=== PATIENT | female | born 1935 | race Caucasian/White ===

== ENCOUNTER 2017-01-17 08:39 | Inpatient (IN) | payer MEDICARE, OTHER ==
[2017-01-17 09:45] LABS: BILIRUBIN - TOTAL 0.4 mg/dL (0.1-1.0); CREATININE 0.9 mg/dL (0.5-1.0); GLOBULIN (CALCULATION) 2.6 g/dL (2.2-4.2); POTASSIUM 4.2 mmol/L (3.5-5.1); TOTAL PROTEIN 6.6 g/dL (6.4-8.3)
[2017-01-17 09:46] LABS: BASOPHIL 0.3 % (0-2); EOSINOPHIL 1.8 % (0-7); HCT 46.4 % (37.0-47.0); HGB 15.3 g/dl (12.5-16.0); LYMPHOCYTE 19.4 % (15-48); MCH 32.1 pg (25.0-31.0); MCV 97.5 fL (78.0-100.0); MPV 8.9 fL (6.0-9.5); NEUTROPHIL 65.5 % (41-80); PLT 177 K/uL (150-400); RBC 4.76 M/uL (4.20-5.40); RDW 13.7 % (11.5-14.0)
[2017-01-18 06:12] LABS: BASOPHIL 0.1 % (0-2); EOSINOPHIL 0 % (0-7); HCT 40.1 % (37.0-47.0); HGB 13.5 g/dl (12.5-16.0); LYMPHOCYTE 9.7 % (15-48); MCH 32.2 pg (25.0-31.0); MCHC 33.7 g/dL (32.0-36.0); MCV 95.7 fL (78.0-100.0); MONOCYTE 3.2 % (0-12); MPV 8.7 fL (6.0-9.5); PLT 145 K/uL (150-400); RBC 4.19 M/uL (4.20-5.40); RDW 13.3 % (11.5-14.0); WBC 11.1 K/uL (4.0-10.5)
[2017-01-18 06:47] LABS: CREATININE 0.8 mg/dL (0.5-1.0); POTASSIUM 3.9 mmol/L (3.5-5.1)
[2017-01-18 22:24] LABS: BILIRUBIN NEGATIVE (NEGATIVE); BLOOD TRACE-INTACT Ery/uL (NEGATIVE); CLARITY CLEAR (CLEAR); COLOR YELLOW (YELLOW); GLUCOSE (U) NORMAL (NORMAL); KETONE (U) NEGATIVE (NEGATIVE); LEUKOCYTES NEGATIVE Leu/uL (NEGATIVE); NITRITE NEGATIVE (NEGATIVE); PROTEIN NEGATIVE (NEGATIVE); SPECIFIC GRAVITY <=1.005 (1.001-1.030); UROBILINOGEN 0.2 mg/dL (0.2-1.0)
[2017-01-18 22:28] LABS: SQUAMOUS EPITHELIAL CELLS RARE
[2017-01-20 04:30] LABS: HCT 40.3 % (37.0-47.0); HGB 13.5 g/dl (12.5-16.0); MCH 32.1 pg (25.0-31.0); MCHC 33.5 g/dL (32.0-36.0); MCV 95.7 fL (78.0-100.0); MPV 8.9 fL (6.0-9.5); RBC 4.21 M/uL (4.20-5.40); RDW 13.5 % (11.5-14.0)
[2017-01-20 04:33] LABS: WBC 22.6 K/uL (4.0-10.5)
[2017-01-20 04:58] LABS: CREATININE 0.8 mg/dL (0.5-1.0); POTASSIUM 5.1 mmol/L (3.5-5.1)
[2017-01-21 05:17] LABS: HCT 41.4 % (37.0-47.0); HGB 13.7 g/dl (12.5-16.0); MCH 31.9 pg (25.0-31.0); MCHC 33.1 g/dL (32.0-36.0); MCV 96.3 fL (78.0-100.0); MPV 9.1 fL (6.0-9.5); RBC 4.3 M/uL (4.20-5.40); RDW 13.8 % (11.5-14.0); WBC 16.3 K/uL (4.0-10.5)
[2017-01-21 05:39] LABS: CREATININE 0.8 mg/dL (0.5-1.0)
[2017-01-21 05:48] LABS: POTASSIUM 5.5 mmol/L (3.5-5.1)
[2017-01-22 05:14] LABS: HCT 40.8 % (37.0-47.0); HGB 13.5 g/dl (12.5-16.0); MCH 31.7 pg (25.0-31.0); MCHC 33.1 g/dL (32.0-36.0); MCV 95.8 fL (78.0-100.0); MPV 8.6 fL (6.0-9.5); RBC 4.26 M/uL (4.20-5.40); RDW 13.6 % (11.5-14.0); WBC 13.2 K/uL (4.0-10.5)
[2017-01-22 05:34] LABS: CREATININE 0.8 mg/dL (0.5-1.0); POTASSIUM 4.1 mmol/L (3.5-5.1)
[2017-01-23 05:56] LABS: HCT 39.7 % (37.0-47.0); HGB 13.2 g/dl (12.5-16.0); MCHC 33.2 g/dL (32.0-36.0); MCV 96.1 fL (78.0-100.0); MPV 8.5 fL (6.0-9.5); RBC 4.13 M/uL (4.20-5.40); RDW 13.5 % (11.5-14.0); WBC 12.4 K/uL (4.0-10.5)
[2017-01-23 06:16] LABS: CREATININE 0.8 mg/dL (0.5-1.0); POTASSIUM 3.9 mmol/L (3.5-5.1)
[2017-01-24 04:40] LABS: HCT 41.4 % (37.0-47.0); MCH 32.1 pg (25.0-31.0); MCHC 33.8 g/dL (32.0-36.0); MPV 8.9 fL (6.0-9.5); RBC 4.36 M/uL (4.20-5.40); RDW 13.6 % (11.5-14.0); WBC 16.1 K/uL (4.0-10.5)
[2017-01-24 05:14] LABS: CREATININE 0.7 mg/dL (0.5-1.0)
[2017-01-24 05:15] LABS: POTASSIUM 5.4 mmol/L (3.5-5.1)
== END 2017-01-25 14:06 | DRG 189 ==
LOC: FER 08:39 → FMS 10:50
PROVIDERS: Internal Medicine; ADMIT Internal Medicine
DX: J96.21 Acute and chronic respiratory failure with hypoxia (principal); F03.90 Unspecified dementia, unspecified severity, without behavioral disturbance, psychotic disturbance, mood disturbance, and anxiety; G62.9 Polyneuropathy, unspecified; J44.0 Chronic obstructive pulmonary disease with (acute) lower respiratory infection; J44.1 Chronic obstructive pulmonary disease with (acute) exacerbation; E78.5 Hyperlipidemia, unspecified; I10 Essential (primary) hypertension; K21.9 Gastro-esophageal reflux disease without esophagitis; M06.9 Rheumatoid arthritis, unspecified; J20.9 Acute bronchitis, unspecified; H60.92 Unspecified otitis externa, left ear; E03.9 Hypothyroidism, unspecified; F41.9 Anxiety disorder, unspecified; Z88.2 Allergy status to sulfonamides; Z86.73 Personal history of transient ischemic attack (TIA), and cerebral infarction without residual deficits; Z79.899 Other long term (current) drug therapy; Z79.82 Long term (current) use of aspirin; Z87.891 Personal history of nicotine dependence
CPT/HCPCS: 36415; 36600; 71010; 71250; 80048; 80053; 81001; 82803; 83605; 84484; 85025; 85651; 86403; 87040; 87070; 87077; 87088; 87205; 87804; 87899; 93005; 94640; 94664; 94668; 97110; 97116; 97161; 97166; 97530-GP; 97535; J0456; J1956; J2543; J2930

== ENCOUNTER 2017-01-25 14:12 | Inpatient (IN) | payer MEDICARE, OTHER ==
--- NOTE | 2017-01-27 15:50 | NUR ---
PT. D/C HOME THIS DATE PER HER REQUEST. PT. REQUESTED [facility] FOR PT/OT AND NURSING ASSESSMENT. D/C NOTICE AND QUESTIONNAIRE GIVEN.
== END 2017-01-27 16:12 | disposition home health service (06) | DRG 189 ==
LOC: FSNU 14:12
PROVIDERS: ADMIT Internal Medicine
PROC: 3E0234Z Introduction of Serum, Toxoid and Vaccine into Muscle, Percutaneous Approach (ICD-10-PCS; principal; 2017-01-25)
DX: J96.21 Acute and chronic respiratory failure with hypoxia (principal); F03.90 Unspecified dementia, unspecified severity, without behavioral disturbance, psychotic disturbance, mood disturbance, and anxiety; G62.9 Polyneuropathy, unspecified; J44.0 Chronic obstructive pulmonary disease with (acute) lower respiratory infection; J44.1 Chronic obstructive pulmonary disease with (acute) exacerbation; Z51.89 Encounter for other specified aftercare; E78.5 Hyperlipidemia, unspecified; I10 Essential (primary) hypertension; K21.9 Gastro-esophageal reflux disease without esophagitis; M06.9 Rheumatoid arthritis, unspecified; Z79.899 Other long term (current) drug therapy; J20.9 Acute bronchitis, unspecified; H60.92 Unspecified otitis externa, left ear; Z88.2 Allergy status to sulfonamides; Z86.73 Personal history of transient ischemic attack (TIA), and cerebral infarction without residual deficits; F41.9 Anxiety disorder, unspecified; Z23 Encounter for immunization
CPT/HCPCS: 90686; 90732; 97116; 97161; 97166; 97530-GP; 97535; G0008; G0009

== ENCOUNTER 2021-02-23 17:11 | Inpatient (IN) | payer MEDICARE, OTHER ==
[~2021-02-23 17:11] MED LIST: ARICEPT10 MG PO; ASCORBIC ACID500 MG PO; ASPIRIN CHEWABL81 MG PO; AUGMENTIN 500-1 EACH PO; BUSPIRONE HCL15 MG PO; CLARITIN-D 241 EACH PO; COLACE100 MG PO; CORTISPORIN-TC10 M1 AD; COZAAR100 MG PO; DICLOFENAC SODI75 MG PO; DUONEB 2.5-0.5M1 AMP NEB; FLONASE ALLER15.8 ML; FOLIC ACID1 MG PO; HCTZ25 MG PO; KEVZARA200 MG/1.1 IJ; LASIX20 MG PO; LEVAQUIN750 MG PO; LEXAPRO 10MG TA10 MG PO; LOPRESSOR50 MG PO; MEDROL 4MG DOSEP4 MG PO; MUCINEX 600MG600 MG PO; MUCINEX600 MG PO; NEURONTIN300 MG PO; NEXIUM40 MG PO; NORVASC5 MG PO; NYSTATIN SUSP1 ML/ML SSP; OS-CAL500 MG PO; PERCOCET 10-321 EACH PO; PERCOCET 7.5-31 EACH PO; POTASSIUM GLUC500 MG PO; PREDNISONE 10MG10 MG PO; PREDNISONE 5MG T5 MG PO; PROBIOTIC1 EAC1 PO; RESTORIL15 MG PO; RHEUMATREX2.5 MG PO; SINGULAIR10 MG PO; SYNTHROID75 MCG PO; TOPROL XL 50 MG50 MG PO; VITAMIN D35000 UNI2 PO; ZOCOR20 MG PO; ZYRTEC10 M3 PO; ZYRTEC10 MG PO
[2021-02-23 19:03] LABS: BASOPHIL 0.3 % (0-2); EOSINOPHIL 0.1 % (0-7); HCT 38.7 % (37.0-47.0); HGB 13.1 g/dl (12.5-16.0); LYMPHOCYTE 7.3 % (15-48); MCH 35.3 pg (25.0-31.0); MCHC 33.9 g/dL (32.0-36.0); MCV 104.3 fL (78.0-100.0); MONOCYTE 6.5 % (0-12); MPV 9.1 fL (6.0-9.5); NRBC 0.1; PLT 161 K/uL (150-400); RBC 3.71 M/uL (4.20-5.40); RDW 16.5 % (11.5-14.0); WBC 25.4 K/uL (4.0-10.5)
[2021-02-23 19:11] LABS: ALBUMIN 2.5 g/dL (3.4-5.0); BILIRUBIN - TOTAL 0.6 mg/dL (0.2-1.0); BUN/CREAT RATIO (CALC) 15.4 RATIO; CREATININE 1.23 mg/dL (0.51-0.95); GLOBULIN (CALCULATION) 3.3 g/dL; POTASSIUM 4.1 mmol/L (3.5-5.1); TOTAL PROTEIN 5.8 g/dL (6.4-8.2)
[2021-02-23 23:07] LABS: BILIRUBIN NEGATIVE (NEGATIVE); BLOOD TRACE-INTACT Ery/uL (NEGATIVE); CLARITY CLEAR (CLEAR); COLOR YELLOW (YELLOW); GLUCOSE (U) NORMAL (NORMAL); LEUKOCYTES NEGATIVE Leu/uL (NEGATIVE); NITRITE NEGATIVE (NEGATIVE); PROTEIN 1+ mg/dL (NEGATIVE); UROBILINOGEN 0.2 mg/dL (0.2-1.0); pH 6.5 (5.0-9.0)
[2021-02-23 23:13] LABS: SQUAMOUS EPITHELIAL CELLS RARE
[2021-02-23] MEDS ORDERED: REMERON15 MG PO (23:15)
[2021-02-23] MEDS ORDERED: SYNTHROID75 MCG PO (23:16)
[2021-02-23] MEDS ORDERED: COREG12.5 MG PO (23:16)
[2021-02-23] MEDS ORDERED: CHILDREN'S ASPI81 MG PO (23:18)
[2021-02-23] MEDS ORDERED: CERTIZINE PO (23:20)
[2021-02-23] MEDS ORDERED: PERCOCET 10-321 EACH PO (23:21)
[2021-02-23] MEDS ORDERED: MOVANTIK12.5 MG PO (23:22)
[2021-02-23] MEDS ORDERED: PRINIVIL20 MG PO (23:23)
[2021-02-23] MEDS ORDERED: PREDNISONE5 MG PO (23:23)
[2021-02-23] MEDS ORDERED: BUSPIRONE HCL15 MG PO (23:24)
[2021-02-23] MEDS ORDERED: LEXAPRO 10MG TA10 MG PO (23:25)
[2021-02-23] MEDS ORDERED: NORVASC2.5 MG PO (23:25)
[2021-02-23] MEDS ORDERED: RHEUMATREX2.5 MG PO (23:27)
[2021-02-23] MEDS ORDERED: LASIX20 MG PO (23:27)
[2021-02-23] MEDS ORDERED: [UNRECOGNIZED DRUG - OTHER] IV (23:30)
[2021-02-24 06:08] LABS: BASOPHIL 0.2 % (0-2); EOSINOPHIL 0.1 % (0-7); HCT 37.4 % (37.0-47.0); HGB 12.3 g/dl (12.5-16.0); LYMPHOCYTE 3.5 % (15-48); MCH 34.6 pg (25.0-31.0); MCHC 32.9 g/dL (32.0-36.0); MCV 105.1 fL (78.0-100.0); MONOCYTE 3.2 % (0-12); MPV 9.4 fL (6.0-9.5); NEUTROPHIL 89.6 % (41-80); NRBC 0; PLT 152 K/uL (150-400); RBC 3.56 M/uL (4.20-5.40); RDW 16.1 % (11.5-14.0); WBC 27.3 K/uL (4.0-10.5)
[2021-02-24 06:28] LABS: ALBUMIN 2.1 g/dL (3.4-5.0); BILIRUBIN - TOTAL 0.6 mg/dL (0.2-1.0); BUN/CREAT RATIO (CALC) 17.1 RATIO; CREATININE 1.11 mg/dL (0.51-0.95); GLOBULIN (CALCULATION) 3.2 g/dL; TOTAL PROTEIN 5.3 g/dL (6.4-8.2)
--- NOTE | 2021-02-24 12:43 | NUR ---
02/24/21 Ms. Ortega lives alone. She has ramps, w/c, rw, bars in the bathroom, s. chair, and 3in1. She sent her home 02 back to [facility] [employer] a week ago. [facility] has followed in the past and [facility]. [place]aylor [place] like [facility] [place]; affliation understood. - Ms. Ortega has 3 supportive children. Ms. Ortega will be moving to a [facility] connected to the home of her daughter, Linnea Ortega. Construction is expected to be complete in 4 weeks. -
[2021-02-25 06:16] LABS: BASOPHIL 0.2 % (0-2); EOSINOPHIL 0 % (0-7); HCT 35.8 % (37.0-47.0); HGB 11.9 g/dl (12.5-16.0); LYMPHOCYTE 4.5 % (15-48); MCH 34.7 pg (25.0-31.0); MCHC 33.2 g/dL (32.0-36.0); MCV 104.4 fL (78.0-100.0); MONOCYTE 3.4 % (0-12); MPV 9.5 fL (6.0-9.5); NEUTROPHIL 89.8 % (41-80); NRBC 0; PLT 156 K/uL (150-400); RBC 3.43 M/uL (4.20-5.40); RETICULOCYTE COUNT 2.6 % (1.0-2.0)
[2021-02-25 06:23] LABS: WBC 25.6 K/uL (4.0-10.5)
[2021-02-25 06:39] LABS: IRON % SATURATION 5.5 %SAT (20-50)
[2021-02-25 07:11] LABS: ALBUMIN 2.4 g/dL (3.4-5.0); BILIRUBIN - TOTAL 0.4 mg/dL (0.2-1.0); BUN/CREAT RATIO (CALC) 20.5 RATIO; CREATININE 0.83 mg/dL (0.51-0.95); FOLIC ACID (SERUM) 14.5 ng/mL (8.6-58.9); GLOBULIN (CALCULATION) 3.8 g/dL; MAGNESIUM 2.2 mg/dL (1.8-2.4); PHOSPHORUS 2.7 mg/dL (2.6-4.7); POTASSIUM 4.5 mmol/L (3.5-5.1); TOTAL PROTEIN 6.2 g/dL (6.4-8.2)
[2021-02-25 07:23] LABS: BAND 10 % (0-10); LYMPHOCYTE(M) 4 % (15-48); MONOCYTE(M) 1 % (0-12); NEUTROPHILS(M) 85 % (41-80); TOTAL CELL COUNT 100
[2021-02-25 07:24] LABS: ANISOCYTOSIS SLIGHT
[2021-02-25 07:25] LABS: PLATELET ESTIMATE NORMAL; PLATELET MORPHOLOGY NORMAL
[2021-02-26 06:07] LABS: BASOPHIL 0.4 % (0-2); EOSINOPHIL 0.1 % (0-7); HCT 39.7 % (37.0-47.0); HGB 12.9 g/dl (12.5-16.0); LYMPHOCYTE 10.8 % (15-48); MCH 34.3 pg (25.0-31.0); MCHC 32.5 g/dL (32.0-36.0); MCV 105.6 fL (78.0-100.0); MONOCYTE 10.9 % (0-12); MPV 9.1 fL (6.0-9.5); NEUTROPHIL 76.9 % (41-80); PLT 173 K/uL (150-400); RBC 3.76 M/uL (4.20-5.40); RDW 16.5 % (11.5-14.0); WBC 16.8 K/uL (4.0-10.5)
[2021-02-26 06:53] LABS: BAND 1 % (0-10); LYMPHOCYTE(M) 11 % (15-48); MONOCYTE(M) 5 % (0-12); NEUTROPHILS(M) 83 % (41-80); TOTAL CELL COUNT 100
[2021-02-26 06:54] LABS: PLATELET ESTIMATE NORMAL; PLATELET MORPHOLOGY NORMAL
[2021-02-26 07:06] LABS: BUN/CREAT RATIO (CALC) 15.9 RATIO; CREATININE 0.88 mg/dL (0.51-0.95); POTASSIUM 4.3 mmol/L (3.5-5.1); VANCOMYCIN, TROUGH 9.6 ug/mL (10-20)
[2021-02-26 07:09] LABS: PRO-BNP 8253 pg/mL (<450)
--- NOTE | 2021-02-26 15:33 | NUR ---
02/26/21 A referral was made to [facility] in anticipation of discharge on 02/27/21.
[2021-02-27 06:29] LABS: BASOPHIL 1.1 % (0-2); EOSINOPHIL 1.9 % (0-7); HCT 37.1 % (37.0-47.0); HGB 12.1 g/dl (12.5-16.0); LYMPHOCYTE 20.9 % (15-48); MCH 34.2 pg (25.0-31.0); MCHC 32.6 g/dL (32.0-36.0); MCV 104.8 fL (78.0-100.0); MPV 9.3 fL (6.0-9.5); NRBC 0; PLT 200 K/uL (150-400); RBC 3.54 M/uL (4.20-5.40); RDW 16.1 % (11.5-14.0); WBC 10.8 K/uL (4.0-10.5)
[2021-02-27 06:34] LABS: MONOCYTE 19.6 % (0-12)
[2021-02-27 06:57] LABS: ALBUMIN 2.3 g/dL (3.4-5.0); BILIRUBIN - TOTAL 0.9 mg/dL (0.2-1.0); BUN/CREAT RATIO (CALC) 15.6 RATIO; CREATININE 0.96 mg/dL (0.51-0.95); GLOBULIN (CALCULATION) 3.3 g/dL; PHOSPHORUS 2.9 mg/dL (2.6-4.7); POTASSIUM 4.7 mmol/L (3.5-5.1); TOTAL PROTEIN 5.6 g/dL (6.4-8.2)
[2021-02-27 06:59] LABS: MAGNESIUM 1.7 mg/dL (1.8-2.4)
--- NOTE | 2021-02-27 14:05 | NUR ---
02/27/21 A referral was made to [facility] for home 02. Please notify [facility] if patient discharges over the weekemd.
[2021-02-28] MEDS ORDERED: DOXYCYCLINE MO100 M1 PO (12:40)
[2021-02-28] MEDS ORDERED: COREG25 MG PO (12:40)
[2021-02-28] MEDS ORDERED: AUGMENTIN 875-1 EACH PO (12:40)
[2021-02-28] MEDS ORDERED: MUCINEX 600MG600 MG PO (12:40)
[2021-02-28] MEDS ORDERED: SINGULAIR10 MG PO (12:40)
[2021-02-28] MEDS ORDERED: LASIX40 MG PO (13:45)
== END 2021-02-28 13:30 | disposition home health service (06) | DRG 871 ==
LOC: FER 17:11 → FTCU 22:20
PROVIDERS: Nurse Practitioner; Nurse Practitioner Family; ADMIT Internal Medicine
DX: A41.9 Sepsis, unspecified organism (principal); J96.01 Acute respiratory failure with hypoxia; J18.9 Pneumonia, unspecified organism; I50.33 Acute on chronic diastolic (congestive) heart failure; R65.21 Severe sepsis with septic shock; F11.20 Opioid dependence, uncomplicated; L03.113 Cellulitis of right upper limb; I95.9 Hypotension, unspecified; Z20.822 Contact with and (suspected) exposure to COVID-19; D50.9 Iron deficiency anemia, unspecified; J20.9 Acute bronchitis, unspecified; J43.2 Centrilobular emphysema; F03.90 Unspecified dementia, unspecified severity, without behavioral disturbance, psychotic disturbance, mood disturbance, and anxiety; I11.0 Hypertensive heart disease with heart failure; F41.1 Generalized anxiety disorder; M06.9 Rheumatoid arthritis, unspecified; I48.0 Paroxysmal atrial fibrillation; G62.9 Polyneuropathy, unspecified; H91.90 Unspecified hearing loss, unspecified ear; Z90.49 Acquired absence of other specified parts of digestive tract; Z98.890 Other specified postprocedural states; Z88.2 Allergy status to sulfonamides; Z88.1 Allergy status to other antibiotic agents; Z88.8 Allergy status to other drugs, medicaments and biological substances; Z79.52 Long term (current) use of systemic steroids; Z79.899 Other long term (current) drug therapy
CPT/HCPCS: 36415; 36600; 71045; 71250; 80048; 80053; 80202; 81001; 82607; 82746; 82803; 83540; 83550; 83605; 83735; 83880; 84100; 84145; 84443; 84484; 85025; 87040; 87088; 93005; 93971; 94010; 94640; 94667; 94668; 97166; 97530; J1100; J1644; J1650; J2543; J2916; J2920; J3370; J3475; J7030; J7050; J7512; U0002

== ENCOUNTER 2021-06-10 17:12 | Inpatient (IN) | payer MEDICARE, OTHER ==
[~2021-06-10] VITALS: Ht 167.6 cm; Wt 65.4 kg
[~2021-06-10 17:12] MED LIST changes: +AUGMENTIN 875-1 EACH PO; +CERTIZINE PO; +CHILDREN'S ASPI81 MG PO; +COREG12.5 MG PO; +COREG25 MG PO; +DOXYCYCLINE MO100 M1 PO; +LASIX40 MG PO; +MOVANTIK12.5 MG PO; +NORVASC2.5 MG PO; +PREDNISONE5 MG PO; +PRINIVIL20 MG PO; +REMERON15 MG PO; +[UNRECOGNIZED DRUG - OTHER] IV
[2021-06-10 20:19] LABS: BASOPHIL 0.2 % (0-2); EOSINOPHIL 0.1 % (0-7); HCT 48.9 % (37.0-47.0); HGB 16.2 g/dl (12.5-16.0); LYMPHOCYTE 3.5 % (15-48); MCHC 33.1 g/dL (32.0-36.0); MCV 96.6 fL (78.0-100.0); MONOCYTE 4.3 % (0-12); NRBC 0; PLT 252 K/uL (150-400); RBC 5.06 M/uL (4.20-5.40); RDW 14.1 % (11.5-14.0); WBC 20.7 K/uL (4.0-10.5)
[2021-06-10 20:26] LABS: NEUTROPHIL 90.8 % (41-80)
[2021-06-10 20:34] LABS: BUN/CREAT RATIO (CALC) 25.2 RATIO; CREATININE 1.11 mg/dL (0.51-0.95); POTASSIUM 5.7 mmol/L (3.5-5.1)
[2021-06-11] MEDS ORDERED: LASIX20 MG PO (05:17)
[2021-06-11] MEDS ORDERED: COREG 6.25MG6.25 MG PO (05:18)
[2021-06-11] MEDS ORDERED: MINOCYCLINE HC100 M1 PO (05:21)
[2021-06-11] MEDS ORDERED: PRILOSEC20 MG PO (05:21)
[2021-06-11] MEDS ORDERED: ALDACTONE25 MG PO (05:21)
[2021-06-11] MEDS ORDERED: LIDOCAINE 5% P1 EACH TOP (05:22)
--- NOTE | 2021-06-11 07:57 | NUR ---
BLADDER SCANNER SHOWED [phone]. PT VOIDED PER POTTY HAT UNABLE TO MEASURE DUE TO STOOL MIXED WITH URINE. PT STATES THAT ABD PAIN HAS SLIGHTLY IMPROVED. WILL CTM.
[2021-06-11 07:58] LABS: BASOPHIL 0.2 % (0-2); EOSINOPHIL 0.3 % (0-7); HCT 32.5 % (37.0-47.0); MCH 32.6 pg (25.0-31.0); MCHC 33.8 g/dL (32.0-36.0); MCV 96.4 fL (78.0-100.0); MONOCYTE 8.5 % (0-12); MPV 9.2 fL (6.0-9.5); NEUTROPHIL 82.4 % (41-80); NRBC 0; PLT 191 K/uL (150-400); RBC 3.37 M/uL (4.20-5.40)
[2021-06-11 08:28] LABS: ALBUMIN 1.8 g/dL (3.4-5.0); BILIRUBIN - TOTAL 0.6 mg/dL (0.2-1.0); BUN/CREAT RATIO (CALC) 22.1 RATIO; CREATININE 1.04 mg/dL (0.51-0.95); GLOBULIN (CALCULATION) 2.8 g/dL; MAGNESIUM 2.6 mg/dL (1.8-2.4); POTASSIUM 4.8 mmol/L (3.5-5.1); TOTAL PROTEIN 4.6 g/dL (6.4-8.2)
[2021-06-12 09:34] LABS: BASOPHIL 0.2 % (0-2); EOSINOPHIL 0.8 % (0-7); HCT 34.9 % (37.0-47.0); HGB 11.2 g/dl (12.5-16.0); LYMPHOCYTE 11.5 % (15-48); MCH 32.2 pg (25.0-31.0); MCHC 32.1 g/dL (32.0-36.0); MCV 100.3 fL (78.0-100.0); MONOCYTE 6.5 % (0-12); NEUTROPHIL 80.5 % (41-80); NRBC 0; PLT 188 K/uL (150-400); RBC 3.48 M/uL (4.20-5.40); RDW 14.5 % (11.5-14.0); WBC 16.9 K/uL (4.0-10.5)
[2021-06-12 09:49] LABS: BUN/CREAT RATIO (CALC) 15.5 RATIO; CREATININE 0.84 mg/dL (0.51-0.95); POTASSIUM 3.8 mmol/L (3.5-5.1)
--- NOTE | 2021-06-12 15:50 | NUR ---
06/12/21 Ms. Ortega lives alone. She is followed by [facility] and wishes to continue their services. [facility] was notified of admission. - Please notify [facility] at [phone] if patient discharges over the weekend. Patient has 02, rw, 3in1,
[2021-06-13 06:23] LABS: BASOPHIL 0.2 % (0-2); EOSINOPHIL 0.1 % (0-7); HGB 10.9 g/dl (12.5-16.0); LYMPHOCYTE 13.8 % (15-48); MCH 32.4 pg (25.0-31.0); MCV 98.2 fL (78.0-100.0); MONOCYTE 6.4 % (0-12); MPV 8.9 fL (6.0-9.5); NEUTROPHIL 78.9 % (41-80); NRBC 0; PLT 212 K/uL (150-400); RBC 3.36 M/uL (4.20-5.40); WBC 16.6 K/uL (4.0-10.5)
[2021-06-13 06:46] LABS: BUN/CREAT RATIO (CALC) 13.1 RATIO; CREATININE 0.84 mg/dL (0.51-0.95); POTASSIUM 4.3 mmol/L (3.5-5.1)
--- NOTE | 2021-06-13 13:19 | NUR ---
[place] AT [facility]. CONCERNED ABOUT PATIENT C/O HEADACHE, COUGH, SORE THROAT. STATES WOULD LIKE PATIENT TO HAVE ANOTHER COVID SWAB, WHICH WAS NEGATIVE. CHEST XRAY TODAY-NEGATIVE. WENT HOME TO GO GET [facility] HOME MEDICATION TO ADD TO MED LIST. IV MORPHINE GIVEN FOR PAIN. CLARITIN ALSO ADDED TO MAR WHICH TAKES ALLERGY MEDICATION AT HOME
[2021-06-13] MEDS ORDERED: METRONIDAZOLE500 MG PO (14:03)
[2021-06-13] MEDS ORDERED: LEVAQUIN500 MG PO (14:03)
--- NOTE | 2021-06-13 18:07 | NUR ---
[id number]--PATIENT DISCHARGED HOME WITH DAUGHTER. IV REMOVED PRIOR TO DISCHARGE. PATIENT IN STABLE CONDITION. PATIENT ALREADY HAS HH SET UP FOR PT
== END 2021-06-13 15:56 | disposition home or self-care (01) | DRG 394 ==
LOC: FER 17:12 → FMS 06-11 02:08 → FICU 06-11 04:04 → FMS 06-11 14:46
PROVIDERS: Internal Medicine; Nurse Practitioner; Nurse Practitioner Family; ADMIT Internal Medicine
DX: K55.9 Vascular disorder of intestine, unspecified (principal); A09 Infectious gastroenteritis and colitis, unspecified; E87.2 Acidosis; I50.32 Chronic diastolic (congestive) heart failure; F11.20 Opioid dependence, uncomplicated; J44.9 Chronic obstructive pulmonary disease, unspecified; I11.0 Hypertensive heart disease with heart failure; E88.09 Other disorders of plasma-protein metabolism, not elsewhere classified; E78.5 Hyperlipidemia, unspecified; Z20.822 Contact with and (suspected) exposure to COVID-19; M06.9 Rheumatoid arthritis, unspecified; E86.0 Dehydration; F41.1 Generalized anxiety disorder; D50.9 Iron deficiency anemia, unspecified; F17.210 Nicotine dependence, cigarettes, uncomplicated; G62.9 Polyneuropathy, unspecified; M85.80 Other specified disorders of bone density and structure, unspecified site; Z88.1 Allergy status to other antibiotic agents; Z88.2 Allergy status to sulfonamides; Z88.8 Allergy status to other drugs, medicaments and biological substances; Z86.73 Personal history of transient ischemic attack (TIA), and cerebral infarction without residual deficits; Z79.899 Other long term (current) drug therapy; Z90.49 Acquired absence of other specified parts of digestive tract; Z90.710 Acquired absence of both cervix and uterus; Z98.890 Other specified postprocedural states; Z79.82 Long term (current) use of aspirin; Z79.52 Long term (current) use of systemic steroids
CPT/HCPCS: 36415; 71045; 74022; 80048; 80053; 83605; 83735; 84145; 85025; 87040; 93005; 94010; 94760; 94762; C1751; C9113; G0378; J0360; J1170; J1956; J2270; J2405; J7030; J7040; J7512; U0002

== ENCOUNTER 2021-07-07 12:05 | Emergency (ER) | payer MEDICARE, OTHER ==
[~2021-07-07] VITALS: Ht 165.1 cm; Wt 54.4 kg
[~2021-07-07 12:05] MED LIST changes: +ALDACTONE25 MG PO; +COREG 6.25MG6.25 MG PO; +LEVAQUIN500 MG PO; +LIDOCAINE 5% P1 EACH TOP; +METRONIDAZOLE500 MG PO; +MINOCYCLINE HC100 M1 PO; +PRILOSEC20 MG PO
[2021-07-07 16:05] LABS: BASOPHIL 0.2 % (0-2); EOSINOPHIL 0.1 % (0-7); HCT 31.9 % (37.0-47.0); HGB 10.7 g/dl (12.5-16.0); LYMPHOCYTE 8.6 % (15-48); MCH 32.2 pg (25.0-31.0); MCHC 33.5 g/dL (32.0-36.0); MCV 96.1 fL (78.0-100.0); MONOCYTE 5.7 % (0-12); MPV 8.7 fL (6.0-9.5); NEUTROPHIL 82.3 % (41-80); NRBC 0; PLT 311 K/uL (150-400); RBC 3.32 M/uL (4.20-5.40); RDW 13.4 % (11.5-14.0)
[2021-07-07 16:08] LABS: BILIRUBIN NEGATIVE (NEGATIVE); BLOOD NEGATIVE Ery/uL (NEGATIVE); CLARITY CLEAR (CLEAR); COLOR YELLOW (YELLOW); GLUCOSE (U) NORMAL (NORMAL); LEUKOCYTES NEGATIVE Leu/uL (NEGATIVE); NITRITE NEGATIVE (NEGATIVE); PROTEIN NEGATIVE (NEGATIVE); SPECIFIC GRAVITY 1.015 (1.001-1.030); UROBILINOGEN 0.2 mg/dL (0.2-1.0); pH 5.5 (5.0-9.0)
[2021-07-07 16:11] LABS: WBC 20.6 K/uL (4.0-10.5)
[2021-07-07 17:32] LABS: ALBUMIN 1.5 g/dL (3.4-5.0); BILIRUBIN - TOTAL 0.4 mg/dL (0.2-1.0); BUN/CREAT RATIO (CALC) 25.3 RATIO; CREATININE 0.83 mg/dL (0.51-0.95); GLOBULIN (CALCULATION) 3.7 g/dL; POTASSIUM 5.3 mmol/L (3.5-5.1); TOTAL PROTEIN 5.2 g/dL (6.4-8.2)
[2021-07-07 18:51] LABS: BUN/CREAT RATIO (CALC) 25.3 RATIO; CREATININE 0.79 mg/dL (0.51-0.95)
[2021-07-07 18:53] LABS: POTASSIUM 6.1 mmol/L (3.5-5.1)
[2021-07-08 01:07] LABS: BUN/CREAT RATIO (CALC) 25.9 RATIO; CREATININE 0.54 mg/dL (0.51-0.95); POTASSIUM 4.1 mmol/L (3.5-5.1)
[2021-07-08 09:18] LABS: C-REACTIVE PROTEIN 9.6 mg/dL (<=0.90)
[2021-07-08 09:54] LABS: BASOPHIL 0.5 % (0-2); EOSINOPHIL 0.5 % (0-7); HCT 29.8 % (37.0-47.0); HGB 9.6 g/dl (12.5-16.0); LYMPHOCYTE 12.3 % (15-48); MCHC 32.2 g/dL (32.0-36.0); MCV 99.3 fL (78.0-100.0); MONOCYTE 9.8 % (0-12); MPV 8.5 fL (6.0-9.5); NEUTROPHIL 72.8 % (41-80); NRBC 0; PLT 307 K/uL (150-400); RDW 13.5 % (11.5-14.0)
[2021-07-09 09:59] LABS: BASOPHIL 0.6 % (0-2); EOSINOPHIL 2.3 % (0-7); HCT 33.5 % (37.0-47.0); HGB 10.8 g/dl (12.5-16.0); LYMPHOCYTE 12.7 % (15-48); MCHC 32.2 g/dL (32.0-36.0); MCV 99.1 fL (78.0-100.0); MONOCYTE 8.1 % (0-12); MPV 8.4 fL (6.0-9.5); NRBC 0; PLT 315 K/uL (150-400); RBC 3.38 M/uL (4.20-5.40); RDW 13.3 % (11.5-14.0); WBC 11.5 K/uL (4.0-10.5)
[2021-07-09 10:18] LABS: BUN/CREAT RATIO (CALC) 8.1 RATIO; CREATININE 0.62 mg/dL (0.51-0.95)
[2021-07-10 10:41] LABS: BASOPHIL 0.3 % (0-2); EOSINOPHIL 4.3 % (0-7); HCT 35.8 % (37.0-47.0); HGB 11.4 g/dl (12.5-16.0); LYMPHOCYTE 12.3 % (15-48); MCH 31.8 pg (25.0-31.0); MCHC 31.8 g/dL (32.0-36.0); MCV 99.7 fL (78.0-100.0); MONOCYTE 7.6 % (0-12); MPV 8.3 fL (6.0-9.5); NEUTROPHIL 73.1 % (41-80); NRBC 0; PLT 287 K/uL (150-400); RBC 3.59 M/uL (4.20-5.40); RDW 13.3 % (11.5-14.0); WBC 10.5 K/uL (4.0-10.5)
[2021-07-10 10:59] LABS: BUN/CREAT RATIO (CALC) 12.7 RATIO; CREATININE 0.79 mg/dL (0.51-0.95); POTASSIUM 4.7 mmol/L (3.5-5.1)
== END 2021-07-10 17:50 | disposition other institution (70) ==
LOC: FER 12:05
PROVIDERS: Emergency Medicine; Emergency Medicine Emergency Medical Services; Nurse Practitioner Family
DX: G89.29 Other chronic pain (principal); R10.9 Unspecified abdominal pain; E87.1 Hypo-osmolality and hyponatremia; R11.2 Nausea with vomiting, unspecified; M46.46 Discitis, unspecified, lumbar region; K52.9 Noninfective gastroenteritis and colitis, unspecified; K63.89 Other specified diseases of intestine; I11.0 Hypertensive heart disease with heart failure; I50.9 Heart failure, unspecified; F17.210 Nicotine dependence, cigarettes, uncomplicated; Z88.8 Allergy status to other drugs, medicaments and biological substances; Z88.2 Allergy status to sulfonamides; Z88.1 Allergy status to other antibiotic agents
CPT/HCPCS: 36415; 72100; 72131; 72148; 80048; 80053; 81003; 82024; 82530; 82728; 83605; 83615; 84145; 85025; 86140; 87040; 93005; 96372; J1170; J1650; J1885; J2270; J2405; J2800; J3370; J7030; J7050; J7512

== ENCOUNTER 2022-04-30 12:50 | Emergency (ER) | payer MEDICARE, OTHER ==
[2022-04-30 15:25] LABS: BASOPHIL 0.4 % (0-2); EOSINOPHIL 1.1 % (0-7); HCT 40.6 % (37.0-47.0); HGB 12.4 g/dl (12.5-16.0); LYMPHOCYTE 8.5 % (15-48); MCH 31.7 pg (25.0-31.0); MCHC 30.5 g/dL (32.0-36.0); MCV 103.8 fL (78.0-100.0); MONOCYTE 8.5 % (0-12); MPV 8.5 fL (6.0-9.5); NEUTROPHIL 80.2 % (41-80); NRBC 0; PLT 308 K/uL (150-400); RBC 3.91 M/uL (4.20-5.40); RDW 14.4 % (11.5-14.0); WBC 13.6 K/uL (4.0-10.5)
[2022-04-30 15:37] LABS: ALBUMIN 2.9 g/dL (3.4-5.0); GLOBULIN (CALCULATION) 4.1 g/dL; POTASSIUM 4.5 mmol/L (3.5-5.1)
[2022-04-30 15:38] LABS: BILIRUBIN - TOTAL 0.3 mg/dL (0.2-1.0)
[2022-04-30 15:47] LABS: LACTIC ACID 1.7 mmol/L (0.4-1.9)
[2022-04-30] MEDS ORDERED: PAXLOVID 150-11 EACH PO (16:24)
[2022-04-30] MEDS ORDERED: MEDROL 4MG DOSEP4 MG PO (16:24)
== END 2022-04-30 17:05 | disposition home or self-care (01) ==
LOC: FER 12:50
PROVIDERS: Emergency Medicine
DX: U07.1 COVID-19 (principal); J44.9 Chronic obstructive pulmonary disease, unspecified; I10 Essential (primary) hypertension; Z28.310 Unvaccinated for COVID-19; Z88.2 Allergy status to sulfonamides; Z79.82 Long term (current) use of aspirin; Z79.899 Other long term (current) drug therapy
CPT/HCPCS: 36415; 71046; 80053; 83605; 85025; U0002